=== PATIENT | female | born 1960 | race Caucasian/White ===

== ENCOUNTER 2017-06-23 11:50 | Emergency (ER) | payer OTHER ==
[~2017-06-23] VITALS: Wt 63.7 kg
[2017-06-23] MEDS ORDERED: PRED20TA PO (13:05)
[2017-06-23] MEDS ORDERED: ACYC800T57 PO (13:05)
[2017-06-23] MEDS ORDERED: TRAM50TA2 PO (13:05)
--- NOTE | 2017-06-23 13:08 | ERD ---
ER Documentation Chief Complaint Chief Complaint RASH ON LEFT CALF, ONSET 3 DAYS HPI This 56-year-old female presents with a rash of blisters behind her left knee. She had some pain in her left leg prior to this instance. She denies any fevers , vomiting, shortness of the chest pain or history of trauma. ROS All systems reviewed and are negative except as per history of present illness. Medications Home Meds Active Scripts Prednisone* (Prednisone*) 20 Mg Tab, 40 MG PO DAILY for 4 Days, TAB Prov:YARELI CAGLE MD 06/23/17 Tramadol HCl (Tramadol HCl) 50 Mg Tablet, 50 MG PO Q4 Y for PAIN, #20 TAB Prov:YARELI CAGLE MD 06/23/17 Acyclovir* (Zovirax*) 800 Mg Tablet, 800 MG PO 5 TIMES DAILY for 7 Days, TAB Prov:YARELI CAGLE MD 06/23/17 Allergies Allergies: Coded Allergies: No Known Allergy (Unverified , 06/23/17) PMhx/Soc Hx Alcohol Use: No Hx Substance Use: No Hx Tobacco Use: No Smoking Status: Never smoker Physical Exam Vitals Vital Signs Date Time Temp Pulse Resp B/P Pulse Ox O2 Delivery O2 Flow Rate FiO2 06/23/17 11:54 97.1 74 17 134/63 98 Physical Exam Const: [] Alert, [id number] per Head: Atraumatic Eyes: Normal Conjunctiva ENT: Normal External Ears, Nose and Mouth. Neck: Full range of motion..~ No meningismus. Resp: Clear to auscultation bilaterally Cardio: Regular rate and rhythm, no murmurs Abd: Soft, non tender, non distended. Normal bowel sounds Skin: No petechiae or purpura. The left knee there is erythematous macules with central vesicles. There is no streaking, induration, fluctuance there is no calf swelling or Homans sign. Back: No midline or flank tenderness Ext: No cyanosis, or edema Neur: Awake and alert Psych: Normal Mood and Affect Procedures/MDM She presents with signs and symptoms of herpes zoster behind the left leg. She will be treated with acyclovir, short course of prednisone and tramadol and primary care follow-up and return precautions. There is no evidence of DVT, cellulitis, additional emergent causes of presenting complaints. Departure Diagnosis: Primary Impression: Shingles Herpes zoster complications: without complications Qualified Code: B02.9 - Herpes zoster without complication Condition: Stable Patient Instructions: Shingles (Herpes Zoster) Additional Instructions: Recheck for new or worsening symptoms or primary care doctor. YARELI CAGLE MD Jun 23, 2017 13:08
== END 2017-06-23 14:05 | disposition home or self-care (01) ==
LOC: FTE 11:50
DX: B02.9 Zoster without complications (principal)
CPT/HCPCS: 99284

== ENCOUNTER 2017-08-14 16:03 | Emergency (ER) | END 2017-08-14 17:29 | disposition left against medical advice (07) ==

== ENCOUNTER 2017-12-11 08:24 | Emergency (ER) | END 2017-12-11 10:01 | disposition home or self-care (01) ==

== ENCOUNTER 2018-11-09 03:14 | Emergency (ER) | payer OTHER ==
[~2018-11-09] VITALS: Wt 69.0 kg
[~2018-11-09 03:14] MED LIST: ACYC800T5 PO; PRED20TA PO; TRAM50TA2 PO
[2018-11-09] MEDS ORDERED: LORAZEPAM 2 MG INJ IV STA (04:16)
--- NOTE | 2018-11-09 06:26 | ERD ---
ER Documentation Chief Complaint Chief Complaint aloc s/p tree falling on house. HPI 58-year-old female with no significant past medical history brought in by her for confusion. Reportedly the patient was sleeping and had a dream about a tree falling. However there was actually a tree in the backyard that fell at the same time and woke the patient up from her drain. Patient was very startled and seemed confused. She could not remember things. She denies any headache, vision disturbance, focal weakness or numbness, chest pain, shortness of breath, abdominal pain. She denies any recent alcohol or drug use. She did not take any medications for sleep. She remembers some details about her life but does not remember exactly what happened tonight ROS All systems reviewed and are negative except as per history of present illness. Medications Home Meds Active Scripts Prednisone* (Prednisone*) 20 Mg Tab, 40 MG PO DAILY for 5 Days, TAB Prov:CJ SIMON PA-C 12/11/17 Prednisone* (Prednisone*) 20 Mg Tab, 40 MG PO DAILY for 4 Days, TAB Prov:YARELI CAGLE MD 06/23/17 Tramadol HCl (Tramadol HCl) 50 Mg Tablet, 50 MG PO Q4 PRN for PAIN, #20 TAB Prov:YARELI CAGLE MD 06/23/17 Acyclovir* (Zovirax*) 800 Mg Tablet, 800 MG PO 5 TIMES DAILY for 7 Days, TAB Prov:YARELI CAGLE MD 06/23/17 Allergies Allergies: Coded Allergies: No Known Allergy (Unverified , 06/23/17) PMhx/Soc History of Surgery: Yes () Hx Alcohol Use: No Hx Substance Use: No Hx Tobacco Use: No Smoking Status: Never smoker FmHx Family History: No diabetes Physical Exam Vitals Vital Signs Date Temp Pulse Resp B/P (MAP) Pulse Ox O2 O2 Flow FiO2 Time Delivery Rate 11/09/18 71 16 107/71 99 Room Air 06:03 (83) 11/09/18 98.4 72 16 172/84 99 03:22 (113) Physical Exam Const: Appears distressed due to situation. Nontoxic Head: Atraumatic Eyes: Normal Conjunctiva, PERRLA, EOMI, no nystagmus ENT: Normal External Ears, Nose and Mouth. Neck: Full range of motion. No meningismus. Resp: Clear to auscultation bilaterally Cardio: Regular rate and rhythm, no murmurs Abd: Soft, non tender, non distended. Normal bowel sounds Skin: No petechiae or rashes Back: No midline or flank tenderness Ext: No cyanosis, or edema Neur: Awake and alert, oriented to self only. Unable to tell me month, year. Cranial nerves intact. Strength and sensations intact in all 4 extremities. Normal steady gait. Psych: Anxious Result Diagram: 11/09/18 0433 11/09/18 0433 Results 24 hrs Laboratory Tests Test 11/09/18 04:33 White Blood Count 7.7 10^3/ul Red Blood Count 4.89 10^6/ul Hemoglobin 14.4 g/dl Hematocrit 42.3 % Mean Corpuscular Volume 86.5 fl Mean Corpuscular Hemoglobin 29.4 pg Mean Corpuscular Hemoglobin Concent 34.0 g/dl Red Cell Distribution Width 12.1 % Platelet Count 282 10^3/UL Mean Platelet Volume 9.8 fl Immature Granulocytes % 0.300 % Neutrophils % 68.1 % Lymphocytes % 25.5 % Monocytes % 3.5 % Eosinophils % 2.1 % Basophils % 0.5 % Nucleated Red Blood Cells % 0.0 /100WBC Immature Granulocytes # 0.020 10^3/ul Neutrophils # 5.2 10^3/ul Lymphocytes # 2.0 10^3/ul Monocytes # 0.3 10^3/ul Eosinophils # 0.2 10^3/ul Basophils # 0.0 10^3/ul Nucleated Red Blood Cells # 0.0 10^3/ul Urine Color COLORLESS Urine Clarity CLEAR Urine pH 6.0 Urine Specific [place] 1.003 Urine Ketones NEGATIVE mg/dL Urine Nitrite NEGATIVE mg/dL Urine Bilirubin NEGATIVE mg/dL Urine Urobilinogen NEGATIVE mg/dL Urine Leukocyte Esterase NEGATIVE Dante/ul Urine Hemoglobin NEGATIVE mg/dL Urine Glucose NEGATIVE mg/dL Urine Total Protein NEGATIVE mg/dl Sodium Level 144 mmol/L Potassium Level 4.2 mmol/L Chloride Level 112 mmol/L Carbon Dioxide Level 23 mmol/L Anion Gap 9 Blood Urea Nitrogen 14 mg/dl Creatinine 0.62 mg/dl Est Glomerular Filtrat Rate mL/min > 60 mL/min Glucose Level 121 mg/dl Calcium Level 9.9 mg/dl Total Bilirubin 0.4 mg/dl Direct Bilirubin 0.00 mg/dl Indirect Bilirubin 0.4 mg/dl Aspartate Amino Transf (AST/SGOT) 25 IU/L Alanine Aminotransferase (ALT/SGPT) 29 IU/L Alkaline Phosphatase 85 IU/L Total Protein 8.4 g/dl Albumin 4.8 g/dl Globulin 3.60 g/dl Albumin/Globulin Ratio 1.33 Urine Opiates Screen Negative Urine Barbiturates Negative Urine Amphetamines Screen Negative Urine Benzodiazepines Screen Negative Urine Cocaine Screen Negative Urine Cannabinoids Negative Current Medications Medications Dose Sig/Jhoana Start Time Status Last (Trade) Ordered Route PRN Stop Time Admin Dose Reason Admin Lorazepam 0.5 mg ONCE STAT 11/09/18 DC 11/09/18 (Ativan) IV 04:16 04:31 11/09/18 04:19 Procedures/MDM EMERGENT LABS AND DIAGNOSTIC STUDIES: Lab Results above were reviewed and interpreted by me. CBC: no anemia or evidence of infection CMP: No evidence of clinically significant electrolyte abnormality, acidosis, renal failure, hypoglycemia, liver disease, or biliary obstruction Urine drug screen negative UA: no evidence of infection Radiology Results as interpreted by Radiology below were reviewed by Ngozi Hanna MD: CT head does not show any acute abnormalities Initial Nursing notes reviewed. Previous Medical Records requested via the Electronic Health Record. EMERGENCY DEPARTMENT COURSE / MEDICAL DECISION MAKING: Patient is presenting with confusion after she was startled in her sleep. Her vitals are unremarkable. Neurologic exam is normal other than her confusion and amnesia to the events of tonight. Her labs and imaging did not show any significant abnormalities. The cause of her confusion is not clear. Patient will be observed in the ER for another few hours to see if her symptoms improve. She was given Ativan for anxiety. I have a low suspicion for encephalitis, meningitis, stroke or intracranial hemorrhage. Patient signed out to the oncoming ED physician, Dr. Toscano, who will follow up on the patient. If her confusion is not improving, she may need to be admitted for further workup. Departure Diagnosis: Primary Impression: Altered mental status Altered mental status type: disorientation Qualified Codes: R41.0 - Disorientation, unspecified Condition: Fair BETH HNANA MD Nov 09, 2018 06:26
[2018-11-09 07:34] VITALS: BP 121/71; PULSE 74; RESP 16
--- NOTE | 2018-11-09 08:53 | EN ---
Date/Time of Note Date/Time of Note DATE: 11/09/18 TIME: 08:50 ER Progress Note Sign Out Note: Dr. Case relayed current data and ongoing care with me. Time: Time of this note Primary Provider: None Diagnosis: AMS This patient was signed out to me, for an altered level of consciousness, which is best described as a brief episode and amnesia. The episode self resolved, and occurred in the context the patient hearing a tree fall, and worrying that something might have happened to her son, her at the bedside confirmed that nothing did in fact have been. Her workup was unremarkable, and she had a negative CT. She is alert and oriented x4, she had no focal neuro deficits, at this point I do not suspect acute stroke, her did say that she worries a lot, and he believes that this may have triggered the episode. He requested resources for outpatient mental health, which were provided at discharge patient with no distress. FRANK DOSHI MD Nov 09, 2018 08:53
== END 2018-11-09 08:30 | disposition home or self-care (01) ==
LOC: E/R 03:14
DX: R41.0 Disorientation, unspecified (principal); R40.2142 Coma scale, eyes open, spontaneous, at arrival to emergency department; R40.2362 Coma scale, best motor response, obeys commands, at arrival to emergency department; R40.2252 Coma scale, best verbal response, oriented, at arrival to emergency department
CPT/HCPCS: 36415; 70450; 80053; 80307; 81003; 85025; 96374; J2060; Z7502